=== PATIENT | male | born 1960 | race Caucasian/White ===

== ENCOUNTER 2016-06-10 07:36 | Day surgery (SDC) | payer OTHER ==
[2016-06-03 11:51] LABS: BASO % 0.5 %; BASO ABS # 0.04 K/uL (0-0.2); COMPLETE YES; EOS % 1.5 %; HEMATOCRIT 44.6 % (42-52); IG% 0.5 %; LYMPH % 27.2 %; MEAN CELL VOLUME 89.9 fL (80-100); MEAN CORPUSCULAR HEMOGLOBIN 29.8 pg (25-34); MEAN CORPUSCULAR HGB CONC 33.2 g/dl (32-36); MEAN PLATELET VOLUME 9.4 fL (7.4-10.4); MONO % 6.8 %; NEUT % 63.5 %; PLATELET COUNT 325 K/uL (130-400); RED BLOOD COUNT 4.96 M/uL (4.7-6.1); WHITE BLOOD COUNT 8.08 K/uL (4.8-10.8)
[2016-06-03 12:28] LABS: ALT/SGPT 43 U/L (12-78); BLOOD UREA NITROGEN 10 mg/dl (7-18); BUN/CREATININE RATIO 10.5 (10-20); CALCIUM 9.1 mg/dl (8.5-10.1); CARBON DIOXIDE 27 mmol/L (21-32); CHLORIDE 102 mmol/L (98-107); CREATININE 0.97 mg/dl (0.60-1.40); GLUCOSE 166 mg/dl (70-99); SODIUM 139 mmol/L (136-145)
[2016-06-03 12:31] LABS: ALB/GLOB RATIO 0.9 (0.9-2); ALKALINE PHOSPHATASE 98 U/L (45-117); AST/SGOT 27 U/L (15-37)
--- NOTE | 2016-06-06 09:41 | PAT Medication Instructions ---
Service Date Jun 06, 2016. Current Home Medication List Amlodipine (Norvasc), 5 MG PO DAILY Atorvastatin (Lipitor), 10 MG PO DAILY Losartan Potassium (Cozaar), 100 MG PO DAILY [kristy red], 1 TAB PO DAILY Medication Instructions For Your Scheduled Surgery - Hold the following medications as of 06/06/15: [kristy red], 1 TAB PO DAILY - Hold the following medications the morning of surgery: Losartan Potassium (Cozaar), 100 MG PO DAILY - Take the following medications the morning of surgery with a sip of water OTHERWISE NOTHING TO EAT OR DRINK AFTER MIDNIGHT: Amlodipine (Norvasc), 5 MG PO DAILY Atorvastatin (Lipitor), 10 MG PO DAILY No chewing after midnight If you have any questions please call us at [phone] (Magalis Lewis PA-C ) or [phone] or [phone]
[2016-06-06 10:25] VITALS: BMI 43.0
[2016-06-06 10:30] VITALS: BMI 43.0
--- NOTE | 2016-06-06 13:24 | HISTORY & PHYSICAL EXAMINATION ---
DATE OF ADMISSION: 06/10/2016 SUBJECTIVE CHIEF COMPLAINT: He presents with right knee pain. HISTORY OF PRESENT ILLNESS: The patient is a 55-year-old male complains of right knee pain. It started bothering him approximately 9 months ago, mostly on the lateral side initially and now anteromedially as well. No injury that he can recall. Seems to bother him the most when he is walking and doing weight bearing activities. He has no other complaints at this time. He did have an MRI of his knee. He has also had injections approximately 6 months ago which helped but just briefly. PAST MEDICAL HISTORY: 1. Hypertension. 2. Elevated cholesterol. PAST SURGICAL HISTORY: Includes a rotator cuff surgery of his right shoulder. ALLERGIES: No allergies to medications. CURRENT MEDICATIONS: Include: 1. Nortriptyline. 2. Losartan. 3. Amlodipine. 4. Atorvastatin. FAMILY AND SOCIAL HISTORY: Family history of breast cancer, thyroid cancer and pancreatic cancer. SOCIAL HISTORY: He is , 1 childhood. Rarely drinks alcohol. He chews tobacco for the past 35 years. REVIEW OF SYSTEMS: Were positive for joint pain, stiffness and swelling. OBJECTIVELY PHYSICAL EXAMINATION: CONSTITUTION: He is 6 foot 1, 320 pounds. APPEARANCE: He is a well-developed, well-nourished male in no distress. PSYCHIATRIC: He is alert and oriented x3, proper mood and affect. RESPIRATORY: Equal and bilateral breath sounds. CARDIOVASCULAR: No edema or swelling. Brisk capillary refill in distal extremities. LYMPHATICS: No obvious swelling of the lymph nodes. NEUROLOGICAL: Sensation is intact to touch. He is neurovascularly intact. INTEGUMENTARY: No skin rashes or lesions or warmth. MUSCULOSKELETAL EXAMINATION: Exam of his right knee shows that he ambulates independently. He does have a trace effusion in his right knee. He is tenderness to palpation laterally around the joint spine. He does have a positive Maria Luisa's test. Pain with flexion of his knee. Motion is approximately 0-130 degree. No significant instability. DIAGNOSTIC TESTS: X-rays were done in the office shows that there is grade 1.5 medial compartment gonarthrosis of his right knee, otherwise his x-rays look okay. We did review his MRI. MRI does show medial and lateral meniscus tears of the right knee. ASSESSMENT AND DIAGNOSES: 1. Right medial and lateral meniscus tears. 2. Right knee pain. 3. 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 PLAN: Abdirizak is being preop for surgery for a medial and lateral meniscectomy of his right knee. We did discuss the procedure at detail with him. We discussed recovery times and expectations and he is fully understandable of that. We did make him aware that even after the arthroscopic surgery that his arthritis could flare up and still drive some of his pain. We will follow him approximately 12-14 days postop for suture removal and evaluation. We will provide pain medication as well postoperatively.
[~2016-06-10] VITALS: Ht 185.4 cm; Wt 150.0 kg
[~2016-06-10 07:36] MED LIST: AMLO-110 PO; ATOR10TA88 PO; CEFAZOLIN 1000MG/55 ML D5W IV SCH; CEFAZOLIN 3000 MG/65 ML D5W IV SCH; KRIL1CAP18 PO; LACTATED RINGER'S 1000ML 1,000 ML IV SCH; LOSA1TAB38 PO; NORT50CA PO
[2016-06-10 08:11] VITALS: BP 156/89; PULSE 106; TEMP 36.5; O2SAT 98; Ht 185.4 cm; Wt 150.0 kg
[2016-06-10] MEDS ORDERED: ATROPINE SULFATE 0.1 MG/ML 5ML SYR IV PRN (09:00)
[2016-06-10] MEDS ORDERED: EpHEDrine SULFATE INJ 50 MG/ML AMP IV PRN (09:00)
[2016-06-10] MEDS ORDERED: FLUMAZENIL 0.1 MG/1 ML 10 ML VIAL IV PRN (09:00)
[2016-06-10] MEDS ORDERED: ONDANSETRON INJ 2 MG/ML 2 ML VIAL IV PRN ×2 (09:00→10:30)
[2016-06-10] MEDS ORDERED: MEPERIDINE HCL 25 MG/ML CARP IV PRN (09:00)
[2016-06-10] MEDS ORDERED: NALOXONE HCL 0.4 MG/1 ML VIAL/CARP IV PRN (09:00)
[2016-06-10] MEDS ORDERED: PHENYLEPHRINE 100MCG/ML 5ML SYR IV PRN (09:00)
[2016-06-10] MEDS ORDERED: LABETALOL HCL IV 5 MG/ML 20ML IV PRN (09:00)
[2016-06-10] MEDS ORDERED: HYDROmorphone INJ 2 MG/ML SYR/VIAL IV PRN (09:00)
[2016-06-10] MEDS ORDERED: FENTANYL CITRATE INJ 50 MCG/1 ML 2 ML VIAL IV PRN (09:00)
--- NOTE | 2016-06-10 09:14 | History & Physical Bridge - SC ---
H&P Re-Evaluation Bridge Note: I have examined the patient, reviewed the History & Physical and in the interval since the performance of the History & Physical I have noted the following changes of clinical significance: No changes noted
[2016-06-10] MEDS ORDERED: LIDOCAINE HCL 2% 2 ML VIAL (20MG/ML) ONE (09:22)
[2016-06-10] MEDS ORDERED: NEOSTIGMINE METHYLSULFATE 5 MG/5 ML SYR ONE (09:22)
[2016-06-10] MEDS ORDERED: SUCCINYLCHOLINE CHLORIDE 20 MG/ML 10 ML VIAL IV ONE (09:22)
[2016-06-10] MEDS ORDERED: PHENYLEPHRINE HCL INJ 10 MG/ML VIAL ONE (09:22)
[2016-06-10] MEDS ORDERED: PROPOFOL IV EMULSION 10 MG/ML 20 ML VIAL IV ONE ×2 (09:22→10:03)
[2016-06-10] MEDS ORDERED: DEXAMETHASONE SOD INJ 4 MG/ML VIAL ONE (09:22)
[2016-06-10] MEDS ORDERED: ONDANSETRON INJ 2 MG/ML 2 ML VIAL ONE (09:22)
[2016-06-10] MEDS ORDERED: ROCURONIUM BROMIDE 10 MG/ML 5 ML VIAL ONE (09:22)
[2016-06-10] MEDS ORDERED: EpHEDrine SULFATE INJ 50 MG/ML AMP ONE (09:22)
[2016-06-10] MEDS ORDERED: GLYCOPYRROLATE INJ 0.2 MG/ML VIAL ONE (09:22)
[2016-06-10] MEDS ORDERED: MIDAZOLAM HCL 1 MG/ML 2ML VIAL ONE (09:22)
[2016-06-10] MEDS ORDERED: FENTANYL CITRATE INJ 50 MCG/1 ML 2 ML VIAL ONE (09:22)
[2016-06-10] MEDS ORDERED: KETOROLAC TROMETHAMINE 30 MG/ML VIAL ONE (09:49)
--- NOTE | 2016-06-10 10:04 | [facility] Post Operative Brief Note ---
Immediate Operative Summary Operative Date Jun 10, 2016. Pre-Operative Diagnosis MEDIAL MENICUS TEAR RIGHT KNEE Post-Operative Diagnosis SAME WITH LATERAL MENISCUS TEAR Procedure(s) Performed RIGHT KNEE ARTHROSCOPY WITH PARTIAL MEDIAL AND LATERAL MENISECTOMIES Surgeon ZANA Fish Tender Surgeon(s) MEGAN Estimated Blood Loss 0 Findings ABOVE Anesthesia LMA Complication(s) None Disposition Recovery Room / PACU
[2016-06-10] MEDS ORDERED: BUPIVACAINE 0.5 % 5 MG/1 ML MPF 30ML VIAL INJ ONE (10:10)
[2016-06-10] MEDS ORDERED: ORM MISCELLANEOUS MED XX ONE (10:10)
[2016-06-10] MEDS ORDERED: SODIUM CHLORIDE 0.9% 1000ML 1,000 ML IV SCH (10:17)
[2016-06-10] MEDS ORDERED: HYDR-5688 PO (10:19)
--- NOTE | 2016-06-10 10:20 | Discharge Instructions ---
Discharge Instructions Admission Reason for Admission: Right Knee Current Tear Lateral Cartilage & Menisc Discharge Discharge Diagnosis / Problem: SAME ABOVE Discharge Goals Goal(s): Decrease discomfort, Improve function Activity Recommendations Activity Limitations: as noted below Lifting Limitations: gradually increase as tolerated Exercise/Sports Limitations: until after follow-up appointment Weightbearing Status: Right weightbearing (as tolerated) . Instructions / Follow-Up Instructions / Follow-Up MEDICATIONS: * Resume previous medications unless instructed otherwise by your surgeon. * Always take pain medication on a full stomach or with food to avoid upset stomach. * Do not drink alcohol or drive while taking narcotics. * Ibuprofen or Tylenol may be taken if narcotic not needed. SPECIAL CARE INSTRUCTIONS: __ None _X_ Keep extremity elevated and iced x 48 hours; apply ice 20-30 minutes 8-10 times/day. May remove at night. __ Crutches __ May discard when able __ Brace/Post-op shoe __ 24 hrs/day __ Remove at night _X_ Dressing __ Maintain until seen in office, may shower with plastic over site _X_ Remove dressings in 24-48 hours and then may shower _X_ Cover incisions with band-aids after showering __ Do not remove steri-strips Call physician if chills or temperature rises above 102 degrees or pain unrelieved by prescribed pain medications. Office [phone] Current Hospital Diet Patient's current hospital diet: Discharge Diet Recommended Diet: Regular Diet Procedures Procedures Performed: RIGHT KNEE ARTHROSCOPY WITH PARTIAL MEDIAL AND LATERAL MENISECTOMIES Pending Studies Studies pending at discharge: no Medical Emergencies . Who to Call and When: Medical Emergencies: If at any time you feel your situation is an emergency, please call 911 immediately. . Non-Emergent Contact Non-Emergency issues call your: Primary Care Provider . "Provider Documentation" section prepared by Chan Loving. VTE Core Measure Inpt VTE Proph given/why not?: Treatment not indicated
[2016-06-10] MEDS ORDERED: OXYCODONE/ACETAMINOPHEN 5-325 TAB PO PRN ×2 (10:30)
--- NOTE | 2016-06-10 10:54 | Anesthesiology Progress Note ---
Anesthesia Post Op Note Date & Time Jun 10, 2016 at 10:54 Vital Signs Pain Intensity: 0 Vital Signs Past 12 Hours Date Time Temp Pulse Resp B/P Pulse Ox O2 Delivery O2 Flow Rate FiO2 06/10/16 10:50 36.7 89 16 119/79 94 Room Air 06/10/16 10:40 86 16 127/85 94 Room Air 06/10/16 10:30 91 20 133/87 96 Room Air 06/10/16 10:20 88 16 135/84 100 Mask 10 06/10/16 10:16 36.7 93 16 154/103 99 Mask 10 06/10/16 08:11 36.5 106 22 156/89 98 Room Air Notes Mental Status: alert / awake / arousable, participated in evaluation Pt Amnestic to Procedure: Yes Nausea / Vomiting: adequately controlled Pain: adequately controlled Airway Patency, RR, SpO2: stable & adequate BP & HR: stable & adequate Hydration State: stable & adequate Anesthetic Complications: no major complications apparent
[2016-06-10 11:00] VITALS: BP 145/78; PULSE 96; TEMP 36.7; O2SAT 96
[2016-06-10 11:32] VITALS: BP 143/74; PULSE 86; O2SAT 96
[2016-06-10 11:57] VITALS: BP 144/80; PULSE 90; TEMP 36.3; O2SAT 95
--- NOTE | 2016-06-18 10:01 | EDITING REQUIRED CODING QUERY ---
CQMENISCUS TEAR To promote full compliance with coding requirements relating to patient care physician participation is requested in all cases of groundhand uncertainty. Please assist us with the question(s) below: Please specify the type of Meniscus Tear by placing an "X" within the parenthesis (). If other please document type. () Current Injury DOS 06/10/16 () Old Injury () Other: (Please Specify) Thank you Dee Mendoza
--- NOTE | 2016-06-24 13:13 | OPERATIVE REPORT ---
DATE OF OPERATION: 06/10/2016 PREOPERATIVE DIAGNOSIS: Medial meniscus tear, right knee. POSTOPERATIVE DIAGNOSES: 1. Posterior horn radial tear of the medial meniscus. 2. Radial tear of the lateral meniscus, right knee. SURGERIES PERFORMED: 1. Right knee arthroscopy. 2. Partial medial meniscectomy. 3. Partial lateral meniscectomy. SURGEON: Caio Yanes MD COLORED LEATHER SETTER: Chan Loving PA-C ANESTHESIOLOGIST: Marquis Prince DO ANESTHESIA: General LMA. DRAINS: None. COMPLICATIONS: None. CONDITION: The patient tolerated the procedure well and returned to the recovery room in apparent satisfactory condition. INDICATIONS FOR SURGERY: Abdirizak is a 55-year-old male who has had increasing pain and discomfort consistent with medial meniscus tear of his right knee. Went over treatment options and would like to go ahead and proceed with surgery. Procedure, expected outcomes and side effects were all explained to him preoperatively. We were asked to do this procedure at the hospital because of BMI being over 40. DESCRIPTION OF PROCEDURE: The patient was taken to the OR at which time he was placed supine on the operating table and put to sleep by anesthesia department. Examination of right knee was performed. Ligamentous allen stable. Went ahead and prepped and draped in usual sterile fashion. Began arthroscopic examination in the anteromedial and anterolateral portals. We found a radial tear of the posterior horn of the medial meniscus. We came in with upbiting scissors and full radius resector and trimmed it back to a stable rim. The articular surface looked in good shape. ACL was inspected and found to be okay and we looked at the lateral compartment and he had a radial tear of the lateral meniscus. We came in with upbiting scissors also and a full radius resector and trimmed it back to a stable rim. The articular surfaces looked good. The patellofemoral joint was unremarkable. The knee then was copiously irrigated. All cannulas were removed. Portals were closed with 4-0 nylon sutures. A 30 mL of ropivacaine, 10 mg of Toradol, and a 1 mL epinephrine was placed in the knee joint. Placed a sterile dressing of Xeroform, 4 x 4, ABD, Sof-Rol, and Louis bandage and returned back to recovery room in apparent satisfactory condition. SURGICAL FINDINGS: 1. A radial tear of the posterior horn of the medial meniscus. 2. A tear of the inner rim of the lateral meniscus. I attest to the content of the Intraoperative Record and any orders documented therein. Any exceptio ns are noted below.
--- NOTE | 2016-07-11 09:41 | EDITING REQUIRED CODING QUERY ---
CQMENISCUS TEAR To promote full compliance with coding requirements relating to patient care physician participation is requested in all cases of python web developer uncertainty. Please assist us with the question(s) below: Please specify the type of Meniscus Tear by placing an "X" within the parenthesis (). If other please document type. (x) Current Injury DOS 06/10/16 () Old Injury () Other: (Please Specify) SORRY YOU SIGNED BUT DID NOT ANSWER QUESTION THANKS FOR YOUR HELP Thank you Dee Mendoza
== END 2016-06-10 12:00 | disposition home or self-care (01) ==
LOC: C.ACU 07:36
PROVIDERS: ATTEND Orthopaedic Surgery
DX: S83.241A Other tear of medial meniscus, current injury, right knee, initial encounter (principal); S83.281A Other tear of lateral meniscus, current injury, right knee, initial encounter; M25.561 Pain in right knee; X58.XXXA Exposure to other specified factors, initial encounter; Y92.89 Other specified places as the place of occurrence of the external cause; I10 Essential (primary) hypertension; E78.00 Pure hypercholesterolemia, unspecified; F17.220 Nicotine dependence, chewing tobacco, uncomplicated; M17.11 Unilateral primary osteoarthritis, right knee